=== PATIENT | female | born 1965 | race Caucasian/White ===

== ENCOUNTER 2020-03-10 19:01 | Emergency (ER) | payer OTHER ==
[~2020-03-10] VITALS: Ht 160 cm; Wt 63.0 kg
[2020-03-10] MEDS ORDERED: TENORMIN25 MG (19:51)
[2020-03-10] MEDS ORDERED: KETO10TA2 PO (21:50)
[2020-03-10] MEDS ORDERED: CIPRO500 MG PO (21:50)
== END 2020-03-10 21:57 | disposition home or self-care (01) ==
LOC: ER 19:01
DX: N20.1 Calculus of ureter (principal)